=== PATIENT | female | born 1985 | race Caucasian/White ===

== ENCOUNTER 2017-06-03 01:19 | Emergency (ER) | payer SELFPAY ==
[~2017-06-03] VITALS: Ht 152.4 cm; Wt 49.2 kg
[2017-06-03 01:57] VITALS: BP 113/80
[2017-06-03 02:20] LABS: RAPID INFLUENZA A Negative (Negative); RAPID INFLUENZA B Negative (Negative)
== END 2017-06-03 03:57 | disposition home or self-care (01) ==
LOC: ED 01:38
DX: J02.8 Acute pharyngitis due to other specified organisms (principal); K21.9 Gastro-esophageal reflux disease without esophagitis; E28.2 Polycystic ovarian syndrome; Z87.891 Personal history of nicotine dependence
CPT/HCPCS: 71020; 87400; 99285

== ENCOUNTER 2018-05-29 06:47 | Observation (INO) | payer OTHER ==
[~2018-05-29] VITALS: Ht 152.4 cm; Wt 47.0 kg
--- NOTE | 2018-05-29 07:06 | NUR ---
patient safe in [facility], bedrails up, blankets provided, wearing gown, clothes and possessions in belongings bag.
[2018-05-29] MEDS ORDERED: LORazepam 1MG TABLET PO ONE (07:30)
[2018-05-29 07:39] LABS: BASOPHILS # (AUTO) 0.04 x10^3/uL (0-0.1); BASOPHILS % (AUTO) 1 % (0-1); EOSINOPHILS # (AUTO) 0.05 x10^3/uL (0-0.4); EOSINOPHILS % (AUTO) 1 % (1-7); LYMPHOCYTES % (AUTO) 26 % (22-44); MD NO; MEAN CORPUSCULAR HEMOGLOBIN 30.4 pg (27.0-34.8); MEAN CORPUSCULAR HGB CONC 33.4 g/dL (32.4-35.8); MEAN CORPUSCULAR VOLUME 91.1 fL (80-100); MONOCYTES % (AUTO) 16 % (2-9); NEUTROPHILS # (AUTO) 3.22 x10^3/uL (1.8-6.8); NEUTROPHILS % (AUTO) 57 % (42-75); PLATELET COUNT 334 x10^3/uL (130-400); RED BLOOD COUNT 4.57 x10^6/uL (3.82-5.3); RED CELL DISTRIBUTION WIDTH 13.9 % (9.6-15.2)
[2018-05-29 07:50] LABS: ALANINE AMINOTRANSFERASE 28 U/L (12-78); ALBUMIN 4.1 g/dL (3.4-5.0); ANION GAP 11 mmol/L (5-15); CALCIUM 8.7 mg/dL (8.5-10.1); CHLORIDE 107 mmol/L (98-107)
[2018-05-29] MEDS ORDERED: LIDOCAINE 1%-EPI 1:100K, 30ML ONE (07:54)
[2018-05-29 07:55] LABS: ALKALINE PHOSPHATASE 53 U/L (45-117); BILIRUBIN,TOTAL 0.3 mg/dL (0.2-1.0); CREATININE 0.88 mg/dL (0.55-1.02); TOTAL PROTEIN 7.7 g/dL (6.4-8.2)
[2018-05-29] MEDS ORDERED: LORazepam 1MG TABLET ONE ×2 (07:55→22:49)
[2018-05-29 08:03] LABS: SALICYLATE LEVEL < 1.7 mg/dL (2.8-20.0)
--- NOTE | 2018-05-29 08:11 | NUR ---
patient has been assisted to bathroom, urine sent to lab, blood drawn by lab, patient remains safe in bed, call light in reach, patient expresses that she has no desire to harm herself right now, POC discussed with CARLITOS GILLIAM and patient to stay in room 18, will require sutures, patient updated and in agreement.
[2018-05-29 08:12] LABS: ACETAMINOPHEN < 2 mcg/mL (10-30)
[2018-05-29 08:13] LABS: AMPHETAMINE SCREEN, URINE Negative (Negative); BARBITURATE SCREEN, URINE Negative (Negative); BENZODIAZEPINE SCREEN, URINE Negative (Negative); CANNABINOID SCREEN, URINE Negative (Negative); COCAINE SCREEN, URINE Positive (Negative); METHADONE SCREEN, URINE Negative (Negative); OPIATE SCREEN, URINE Negative (Negative)
--- NOTE | 2018-05-29 08:43 | NUR ---
Pt attempting to leave department. MANE URBINA requesting secured room and sitter. Pt moved to 39. Room secured, sitter within eyesight of pt, all safety measures observed.
[2018-05-29] MEDS ORDERED: ZIPRASIDONE 20 MG INJ IM ONE ×2 (09:28→09:30)
--- NOTE | 2018-05-29 09:39 | NUR ---
late entry: report from Per.
--- NOTE | 2018-05-29 09:39 | NUR ---
Pt is angry and constantly leaving the room. Explained to pt why she needs to stay in her room several times. Pt demaning to have her stuff. Explained several times why she can not have her stuff. Pt constantly asking to make phone calls. Pt made a few phone calls. Pt demanding to be transferred to [facility]. Explained to pt that [facility] is on [facility]vert. Explained to pt several times that she is on a legal hold. Pt will not stay in her room and constantly demands to have her stuff and to be transferred. Pt medicated per order. Pt is alert, oriented, with NAD. Pt is dressed in a gown, belogings are in the locker. Sitter outside the room in line of site.
--- NOTE | 2018-05-29 10:00 | NUR ---
Pt is cussing and demanding her phone, her belongings, and to call her sister. Explained why she can can not.
--- NOTE | 2018-05-29 10:26 | NUR ---
pt resting in bed, respirations equal and non labored, NAD. Sitter outside the room.
--- NOTE | 2018-05-29 11:16 | NUR ---
pt resting in bed, respirations equal and non labored, NAD. Sitter outside the room.
[2018-05-29] MEDS ORDERED: L.E.T SOLUTION TP ONE ×2 (11:50→12:00)
--- NOTE | 2018-05-29 12:05 | NUR ---
LET placed on pts wounds to left forearm.
--- NOTE | 2018-05-29 12:50 | NUR ---
CARLITOS placed 5 andrés on the inside of pts left forarm and 1 large bandaid placed to cover them. Pt is resting in bed with eyes closed, respirations equal and non labored. NAD. Sitter outside the room.
--- NOTE | 2018-05-29 13:41 | NUR ---
Pt resting in bed, respirations equal and non labored, NAD. Sitter outside the room.
--- NOTE | 2018-05-29 14:29 | NUR ---
Hospitalist at bedside.
[2018-05-29] MEDS ORDERED: KETOROLAC 30 MG/1 ML IV PRN (15:00)
[2018-05-29] MEDS ORDERED: ONDANSETRON ODT 4 MG PO PRN (15:00)
[2018-05-29] MEDS ORDERED: ACETAMINOPHEN 325 MG TABLET ONE (15:07)
[2018-05-29] MEDS: ACETAMINOPHEN 325 MG TABLET PO PRN ×2 (15:08→23:51)
--- NOTE | 2018-05-29 15:11 | NUR ---
Pt requested tylenol. Pt medicated per order.
--- NOTE | 2018-05-29 16:05 | NUR ---
Pt resting in bed, respirations equal and non labored, NAD. Sitter outside the room.
--- NOTE | 2018-05-29 17:01 | NUR ---
Pt resting in bed, respirations equal and non labored, NAD. Sitter outside the room.
--- NOTE | 2018-05-29 17:52 | NUR ---
Pt offered dinner tray, pt woke up and said she wanted it, then went back to sleep. Sitter outside the room.
--- NOTE | 2018-05-29 17:59 | NUR ---
Pt is sitting up in bed, signing papers for registration. Pt is eating her meal.
--- NOTE | 2018-05-29 19:10 | NUR ---
received report from THERESA Pearson. patient awake and wanting to leave.
--- NOTE | 2018-05-29 19:17 | NUR ---
Report given to Siva CARDENAS.
--- NOTE | 2018-05-29 19:25 | NUR ---
patient wants to talk to doctor asking for medication. patient wanting to leave and have her phone and clothes back. patient was told that she was placed on legal hold and she cant have her belongings.
--- NOTE | 2018-05-29 20:23 | NUR ---
patient sleeping at this time. respiration unlabored.
--- NOTE | 2018-05-29 21:43 | NUR ---
no changes. patient sleeping, sitter at the door.
[2018-05-29] MEDS: LORazepam 1MG TABLET PO PRN (22:54)
--- NOTE | 2018-05-29 22:54 | NUR ---
patient asking if she can have her cellphone was told again that she cant have it. allowed here to use hospital phone to make a call. patient didnt talk to anyone but left a message.
--- NOTE | 2018-05-29 22:58 | NUR ---
patient medicated for anxiety also asked for sanitary pads. provided.
--- NOTE | 2018-05-29 23:20 | NUR ---
leilani at bedside talking to patient for evaluation.
--- NOTE | 2018-05-29 23:32 | NUR ---
per THERESA [facility]. patient ok to go up to floor.
[2018-05-29 23:41] VITALS: BP 108/76
[2018-05-29 23:57] VITALS: BP 108/76
[2018-05-30] MEDS: LORazepam 1MG TABLET PO PRN ×4 (00:54→16:08)
[2018-05-30] MEDS ORDERED: LORazepam 0.5MG TABLET PO ONE (01:00)
[2018-05-30 08:00] VITALS: BP 96/60
[2018-05-30] MEDS ORDERED: LORA1TAB PO (09:31)
[2018-05-30] MEDS ORDERED: LORA0.5T PO (09:31)
[2018-05-30] MEDS ORDERED: MIRT30TA PO (09:32)
[2018-05-30] MEDS: IBUPROFEN 200 MG TABLET PO PRN ×2 (10:23→16:42)
[2018-05-30 20:00] VITALS: BP 96/60
[2018-05-30] MEDS: MIRTAZAPINE 15 MG TABLET PO SCH (20:24)
[2018-05-30] MEDS: NEOSPORIN OINT. PKT 1 PACKET TP SCH (20:27)
[2018-05-31] MEDS: LORazepam 1MG TABLET PO PRN ×5 (01:35→23:28)
[2018-05-31] MEDS: NEOSPORIN OINT. PKT 1 PACKET TP SCH ×2 (07:40→21:00)
[2018-05-31 07:50] VITALS: BP 98/66
[2018-05-31] MEDS: IBUPROFEN 200 MG TABLET PO PRN ×2 (08:06→20:28)
[2018-05-31 19:24] VITALS: BP 109/71
[2018-05-31] MEDS: MIRTAZAPINE 15 MG TABLET PO SCH (20:27)
[2018-06-01] MEDS: LORazepam 1MG TABLET PO PRN ×4 (03:34→20:39)
[2018-06-01 07:49] VITALS: BP 108/49
[2018-06-01] MEDS: IBUPROFEN 200 MG TABLET PO PRN (09:21)
[2018-06-01] MEDS: NEOSPORIN OINT. PKT 1 PACKET TP SCH ×2 (09:21→19:26)
[2018-06-01] MEDS: ACETAMINOPHEN 325 MG TABLET PO PRN (10:12)
[2018-06-01 19:25] VITALS: BP 101/65
[2018-06-01] MEDS: MIRTAZAPINE 15 MG TABLET PO SCH (20:38)
[2018-06-02] MEDS: ACETAMINOPHEN 325 MG TABLET PO PRN (00:02)
[2018-06-02] MEDS: LORazepam 1MG TABLET PO PRN ×4 (00:53→20:59)
[2018-06-02 08:00] VITALS: BP 96/60
[2018-06-02] MEDS: NEOSPORIN OINT. PKT 1 PACKET TP SCH ×2 (08:54→20:49)
[2018-06-02 19:47] VITALS: BP 97/71
[2018-06-02] MEDS: MIRTAZAPINE 15 MG TABLET PO SCH (20:49)
[2018-06-03] MEDS: LORazepam 1MG TABLET PO PRN ×3 (05:25→18:36)
[2018-06-03] MEDS: IBUPROFEN 200 MG TABLET PO PRN (05:26)
[2018-06-03 08:20] VITALS: BP 95/65
[2018-06-03] MEDS: NEOSPORIN OINT. PKT 1 PACKET TP SCH ×2 (08:23→20:25)
[2018-06-03 19:19] VITALS: BP 94/65
[2018-06-03] MEDS: MIRTAZAPINE 15 MG TABLET PO SCH (20:24)
[2018-06-04] MEDS: LORazepam 1MG TABLET PO PRN ×2 (01:31→07:53)
[2018-06-04] MEDS: NEOSPORIN OINT. PKT 1 PACKET TP SCH (07:53)
[2018-06-04 08:21] VITALS: BP 93/64
== END 2018-06-04 11:45 | disposition home or self-care (01) ==
LOC: ED 10:31 → EDIP 14:04 → 2N 23:32
PROVIDERS: ADMIT Hospitalist; ATTEND Hospitalist
DX: S61.512A Laceration without foreign body of left wrist, initial encounter (principal); T14.91XA Suicide attempt, initial encounter; K21.9 Gastro-esophageal reflux disease without esophagitis; F10.120 Alcohol abuse with intoxication, uncomplicated; E28.2 Polycystic ovarian syndrome; F17.200 Nicotine dependence, unspecified, uncomplicated; F41.1 Generalized anxiety disorder; X78.8XXA Intentional self-harm by other sharp object, initial encounter; Y93.89 Activity, other specified; Y92.89 Other specified places as the place of occurrence of the external cause; Y99.8 Other external cause status
CPT/HCPCS: 12001; 36415; 80053; 80307; 80329; 84703; 85025; 96372; 99284; G0378; J3486; Q0177; G0480